=== PATIENT | male | born 2000 | race Caucasian/White ===

== ENCOUNTER 2018-09-16 18:01 | Emergency (ER) | payer OTHER ==
[~2018-09-16] VITALS: Ht 172.7 cm; Wt 86.2 kg
[2018-09-16 18:51] LABS: BASO % 0.8 % (0.0-1.0); EOS # 0.2 10^3/uL (0.0-0.50); EOS % 4.2 % (0.0-3.0); HEMATOCRIT 47.7 % (42.0-52.0); HEMOGLOBIN 16.1 g/dl (13.5-17.5); LYMPH # 1.4 10^3/uL (1.5-6.5); LYMPH % 27.7 % (24.0-44.0); MEAN CORPUSCULAR HEMOGLOBIN 30.7 pg (27.0-33.0); MEAN CORPUSCULAR HGB CONC 33.8 g/dl (32.0-36.5); MEAN CORPUSCULAR VOLUME 90.9 fl (80.0-96.0); MONO # 0.5 10^3/uL (0.0-0.8); MONO % 9.4 % (0.0-5.0); NEUTROPHILS # 2.9 10^3/uL (1.8-7.7); NEUTROPHILS % 57.7 % (36.0-66.0); PLATELET COUNT, AUTOMATED 176 10^3/uL (150-450); RED BLOOD COUNT 5.25 10^6/uL (4.30-6.10)
[2018-09-16 19:23] LABS: ALBUMIN 4.3 GM/DL (3.2-5.2); ALT/SGPT 53 U/L (12-78); BILIRUBIN,DIRECT 0.2 MG/DL (0.0-0.2); BILIRUBIN,TOTAL 0.7 MG/DL (0.2-1.0); BLOOD UREA NITROGEN 16 MG/DL (7-18); CALCIUM LEVEL 9.2 MG/DL (8.5-10.1); CARBON DIOXIDE LEVEL 31 MEQ/L (21-32); CHLORIDE LEVEL 106 MEQ/L (98-107); GLUCOSE, FASTING 89 MG/DL (70-100); LIPASE 77 U/L (73-393); POTASSIUM SERUM 4.1 MEQ/L (3.5-5.1); SODIUM LEVEL 141 MEQ/L (136-145); TOTAL PROTEIN 8.1 GM/DL (6.4-8.2)
[2018-09-16] MEDS ORDERED: NAPR-885 PO (20:35)
[2018-09-16] MEDS ORDERED: ONDANSETRON 4MG/2ML VIAL (J2405) IV ONE (21:30)
[2018-09-16] MEDS ORDERED: ISOVUE-370 76% 100ML VIAL (Q9967) As Ordered ONE (21:43)
--- NOTE | 2018-09-16 23:13 | REPVR ---
EXAM: CT Abdomen and Pelvis With Contrast EXAM DATE/TIME: 09/16/2018 10:09 PM CLINICAL HISTORY: 18 years old, male; Abdominal pain; Localized; Right upper quadrant (ruq); Additional info: Ruq abd pain, llq abd pain, n/v TECHNIQUE: Imaging protocol: Axial computed tomography images of the abdomen and pelvis with intravenous contrast. Coronal and sagittal reformatted images were created and reviewed. Radiation optimization: All CT scans at this facility use at least one of these dose optimization techniques: automated exposure control; mA and/or kV adjustment per patient size (includes targeted exams where dose is matched to clinical indication); or iterative reconstruction. Contrast material: ISOVUE 370;Contrast volume: 100 ml;Contrast route: IV; COMPARISON: No relevant prior studies available. FINDINGS: Lungs: No suspicious mass or airspace process in the visualized lung bases. Liver: Liver appears normal with no focal abnormality. Gallbladder and bile ducts: Gallbladder is present and shows no evidence of gallstone. Pancreas: Pancreas appears normal. No focal mass or peripancreatic inflammation. Spleen: Spleen appears homogeneous without focal mass. Adrenals: Adrenal glands are normal in appearance. Kidneys and ureters: Kidneys appear normal, with no stone, solid mass or hydronephrosis. Stomach and bowel: No evidence of small bowel obstruction. Large volume of stool is seen throughout the colon. No evidence of acute diverticulitis. Appendix: Normal caliber appendix is identified, with no adjacent inflammation. Intraperitoneal space: No pneumoperitoneum. No abnormal pelvic mass. Vasculature: Main portal and splenic veins enhance normally. No aortic aneurysm. Lymph nodes: No enlarged lymph nodes. Bladder: Bladder appears normal. Reproductive: Unremarkable as visualized. Bones/joints: Bony structures show no acute fracture or destructive process. Soft tissues: Unremarkable. IMPRESSION: 1. No acute surgical or inflammatory intra-abdominal or pelvic process. 2. Prominent colonic stool suggesting possible mild diffuse constipation Electronically signed by: Mane Navarrete On 09/16/2018 23:13:16 PM
[2018-09-16] MEDS ORDERED: PANTOPRAZOLE 40MG TAB (PROTONIX) PO ONE (23:30)
[2018-09-16] MEDS ORDERED: ONDANSETRON 4 MG ORAL DISINTEGRATING TAB (Q0162 PER 1MG) PO ONE (23:30)
[2018-09-16] MEDS ORDERED: SUCRALFATE SUSP 1GM/10ML UD PO ONE (23:30)
[2018-09-16] MEDS ORDERED: PANTOPRAZOLE 40MG INJ (PROTONIX) (C9113) IV ONE (23:30)
[2018-09-16] MEDS ORDERED: PANT40TA3 PO (23:34)
[2018-09-16] MEDS ORDERED: SUCR1SS PO (23:34)
[2018-09-16 23:36] VITALS: BP 123/57
== END 2018-09-16 23:52 | disposition home or self-care (01) ==
LOC: M ED 18:01
DX: K59.00 Constipation, unspecified (principal); F17.210 Nicotine dependence, cigarettes, uncomplicated
CPT/HCPCS: 74177; 80048; 80076; 81001; 83690; 85025; 96374; 99284; J2405; Q0162; Q9967

== ENCOUNTER 2018-11-13 20:33 | Emergency (ER) | payer OTHER ==
[~2018-11-13] VITALS: Ht 172.7 cm; Wt 90.4 kg
[~2018-11-13 20:33] MED LIST: NAPR-885 PO; PANT40TA3 PO; SUCR1SS PO
[2018-11-13] MEDS ORDERED: IBUPROFEN 600 MG TAB PO ONE (21:15)
[2018-11-13 21:56] VITALS: BP 128/62
--- NOTE | 2018-11-14 01:47 | REP ---
Clinical: Trauma. Technique: AP, lateral, bilateral oblique and sunrise views of the right knee. Findings: Exostosis along the lateral femoral metaphysis. Joint spaces and osseous structures are otherwise intact and normal. No evidence for acute fracture or dislocation. No significant degenerative changes. No definite effusion. Impression: 1. 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 2. No acute fracture or dislocation. Electronically Signed by Waylon Cobian MD 11/14/2018 01:38 A
== END 2018-11-13 22:01 | disposition home or self-care (01) ==
LOC: M ED 20:33
DX: S80.01XA Contusion of right knee, initial encounter (principal); W10.8XXA Fall (on) (from) other stairs and steps, initial encounter; Y92.009 Unspecified place in unspecified non-institutional (private) residence as the place of occurrence of the external cause

== ENCOUNTER 2018-12-31 18:21 | Emergency (ER) | payer OTHER ==
[~2018-12-31] VITALS: Ht 172.7 cm; Wt 93.5 kg
[2018-12-31] MEDS ORDERED: ALEV220T22 PO (18:30)
[2018-12-31] MEDS ORDERED: IBUP80TA PO (18:30)
[2018-12-31] MEDS ORDERED: NAPR250T4 PO (18:30)
[2018-12-31 19:42] VITALS: BP 147/65
--- NOTE | 2018-12-31 19:48 | REPVR ---
PROCEDURE INFORMATION: Exam: US Right Non-Vascular Joint or Other Extremity Structure, Limited Lower Extremity Exam date and time: 12/31/2018 7:06 PM Clinical history: 18 years old, male; Injury or trauma; Injury history: Patient states lump appear approx. 1 week ago and area has been getting bigger; Initial encounter; Bite; Lower leg; Right; Injury date: 12/25/18; Additional info: 1cm calf lesion within hematoma eval for soft tissue mass TECHNIQUE: Imaging protocol: Right US Non-Vascular Joint or Other Extremity Structure. Limited exam of the lower extremity. COMPARISON: No relevant prior studies available. FINDINGS: There is mild swelling of the subcutaneous tissues at the site of the patient's bruising. There is mild fluid stranding with the subcutaneous tissues as well. No abnormal increased color Doppler blood flow is identified. No drainable abscess is seen. There is a slightly lobulated nodular focus measuring 1.9 cm x 1.3 cm x 0.5 cm that is echogenic to subcutaneous fat, located at the site of patient's calf swelling, nonspecific. IMPRESSION: Nonspecific swelling, nodularity and edema within the subcutaneous tissues of the right calf. These changes may be seen with edema, infection, foreign body reaction, inflammatory reaction as well as nonspecific neoplasm. Close clinical correlation is needed. Consider followup MRI as clinically indicated. Electronically signed by: Tim Guerra On 12/31/2018 19:48:04 PM
--- NOTE | 2019-01-01 07:58 | ED PDOC ---
Post-Departure Follow-Up radiology report faxed to [facility] Lori Murray MD Jan 01, 2019 07:58
== END 2018-12-31 20:08 | disposition home or self-care (01) ==
LOC: M ED 18:21
DX: S80.11XA Contusion of right lower leg, initial encounter (principal); M79.89 Other specified soft tissue disorders; M79.661 Pain in right lower leg; X58.XXXA Exposure to other specified factors, initial encounter; Y92.89 Other specified places as the place of occurrence of the external cause; D16.21 Benign neoplasm of long bones of right lower limb; F17.200 Nicotine dependence, unspecified, uncomplicated

== ENCOUNTER 2019-03-14 11:20 | Emergency (ER) | payer OTHER ==
[~2019-03-14] VITALS: Ht 172.7 cm; Wt 86.4 kg
[~2019-03-14 11:20] MED LIST changes: +ALEV220T22 PO; +IBUP80TA PO; +NAPR250T4 PO
--- NOTE | 2019-03-14 14:25 | REP ---
Right knee five views: There is no fracture or dislocation. There is questionably a joint effusion. There are no calcifications or foreign bodies. Mineralization and joint spaces are normal. Impression: Questionable joint effusion, otherwise negative right knee. Electronically Signed by Lowell Leonardo MD 03/14/2019 02:17 P
[2019-03-14] MEDS ORDERED: IBUPROFEN 800 MG TAB PO ONE (16:30)
--- NOTE | 2019-03-14 16:48 | REP ---
Right tibia-fibula four views : There is no fracture or dislocation. Mineralization and joint spaces are normal. There are no calcifications or foreign bodies. Impression: Negative right tibia-fibula . Electronically Signed by Lowell Leonardo MD 03/14/2019 04:38 P
[2019-03-14 18:19] VITALS: BP 118/86
== END 2019-03-14 18:18 | disposition home or self-care (01) ==
LOC: M ED 11:20
DX: M25.461 Effusion, right knee (principal); S80.01XA Contusion of right knee, initial encounter; W00.0XXA Fall on same level due to ice and snow, initial encounter; Y92.410 Unspecified street and highway as the place of occurrence of the external cause; F17.210 Nicotine dependence, cigarettes, uncomplicated

== ENCOUNTER 2019-07-29 11:17 | Emergency (ER) | payer OTHER ==
[~2019-07-29] VITALS: Ht 172.7 cm; Wt 100.0 kg
[2019-07-29] MEDS ORDERED: IBUP80TA PO (11:49)
[2019-07-29] MEDS ORDERED: DERMABOND TOPICAL SKIN ADHESIVE TOP ONE (12:15)
[2019-07-29] MEDS ORDERED: LIDOCAINE 1% MDV 20ML VIAL SC ONE (12:15)
[2019-07-29] MEDS ORDERED: KEFL500C17 PO (12:33)
[2019-07-29 12:44] VITALS: BP 118/75
== END 2019-07-29 12:45 | disposition home or self-care (01) ==
LOC: M ED 11:17
DX: S61.412A Laceration without foreign body of left hand, initial encounter (principal); F17.200 Nicotine dependence, unspecified, uncomplicated; W26.0XXA Contact with knife, initial encounter; Y93.89 Activity, other specified; Y99.8 Other external cause status; Y92.008 Other place in unspecified non-institutional (private) residence as the place of occurrence of the external cause

== ENCOUNTER 2019-10-30 11:50 | Emergency (ER) | payer OTHER ==
[~2019-10-30] VITALS: Ht 172.7 cm; Wt 101.6 kg
[2019-10-30 11:50] VITALS: BP 120/73
[~2019-10-30 11:50] MED LIST changes: +KEFL500C17 PO; +PANT40TA29 PO; -PANT40TA3 PO
--- NOTE | 2019-10-30 12:48 | REPVR ---
PROCEDURE INFORMATION: Exam: XR Chest, 2 Views Exam date and time: 10/30/2019 12:23 PM Age: 19 years old Clinical indication: Cough; Additional info: Cough/sob TECHNIQUE: Imaging protocol: XR of the chest Views: 2 views. COMPARISON: No relevant prior studies available. FINDINGS: Lungs: No acute infiltrate. Mild interstitial prominence. Pleural space: No pleural effusion. Heart/Mediastinum: Normal configuration of the heart. Bones/joints: Unremarkable. IMPRESSION: No acute infiltrate. Electronically signed by: Leonardo Fajardo On 10/30/2019 12:48:38 PM
[2019-10-30] MEDS ORDERED: ZYRTTAB8 PO (12:59)
[2019-10-30] MEDS ORDERED: FLON1SPR NARES (12:59)
== END 2019-10-30 13:08 | disposition home or self-care (01) ==
LOC: M ED 11:50
DX: J06.9 Acute upper respiratory infection, unspecified (principal); F17.290 Nicotine dependence, other tobacco product, uncomplicated